=== PATIENT | male | born 1995 | race Caucasian/White ===

== ENCOUNTER 2018-11-05 19:40 | Emergency (ER) | payer OTHER ==
[~2018-11-05] VITALS: Ht 170.2 cm; Wt 59.2 kg
--- NOTE | 2018-11-05 20:08 | NUR ---
Yakelin JAMIL, at bedside to evaluate pt.
--- NOTE | 2018-11-05 21:07 | NUR ---
Yakelin JAMIL, at bedside to discuss ED findings and d/c information.
[2018-11-05 21:12] VITALS: BP 129/81
--- NOTE | 2018-11-05 21:13 | NUR ---
Patient/Caregiver given discharge instructions and they have confirmed that they understand the instructions. Patient ambulatory with steady gait.
== END 2018-11-05 21:18 | disposition home or self-care (01) ==
LOC: ED 20:30
DX: R07.89 Other chest pain (principal); Z87.891 Personal history of nicotine dependence
CPT/HCPCS: 71046; 93005; 99283

== ENCOUNTER 2019-11-03 15:45 | Emergency (ER) | payer OTHER ==
[~2019-11-03] VITALS: Ht 170.2 cm; Wt 54.7 kg
--- NOTE | 2019-11-03 16:24 | NUR ---
PT WITH ABD PAIN RUQ RLQ AND R FLANK PAIN. PT STATES IT HAS BEEN GOING ON FOR 10 DAYS. NO REBOUND NOTED. PT REPORTS SOME CHEST DISCOMFORT, GETS WORSE WHEN HE DRINKS ETOH. PT NOTED TO HAVE TREMORS, LAST DRINK REPORTED 5 DAYS AGO. PT DENIES N/V/D. PT TO CARD MONITOR, BP, CONT PULSE OX ER PROVIDER IN TO EVAL PT, AWAITING ORDERS
--- NOTE | 2019-11-03 16:41 | NUR ---
PT STATES UNABLE TO PROVIDE URINE SAMPLE, PT URINATED PRIOR TO COMING TO RM. WILL ATTEMPT AT LATER TIME
[2019-11-03 16:46] LABS: BASOPHILS # (AUTO) 0.03 x10^3/uL (0-0.1); BASOPHILS % (AUTO) 1 % (0-1); EOSINOPHILS # (AUTO) 0.46 x10^3/uL (0-0.4); EOSINOPHILS % (AUTO) 8 % (1-7); LYMPHOCYTES % (AUTO) 26 % (22-44); MD NO; MEAN CORPUSCULAR HEMOGLOBIN 32.7 pg (27.5-34.5); MEAN CORPUSCULAR HGB CONC 33.9 g/dL (33.2-36.2); MEAN CORPUSCULAR VOLUME 96.6 fL (81-97); MEAN PLATELET VOLUME 9.7 fL (7.4-10.4); MONOCYTES # (AUTO) 0.86 x10^3/uL (0.2-0.8); MONOCYTES % (AUTO) 15 % (2-9); NEUTROPHILS % (AUTO) 51 % (42-75); PLATELET COUNT 199 x10^3/uL (130-400); RED BLOOD COUNT 4.91 x10^6/uL (4.38-5.82); RED CELL DISTRIBUTION WIDTH 13.5 % (9.4-14.8)
[2019-11-03 16:53] LABS: ALANINE AMINOTRANSFERASE 48 U/L (12-78); ALBUMIN 4.3 g/dL (3.4-5.0); ANION GAP 9 mmol/L (5-15); CALCIUM 8.9 mg/dL (8.5-10.1); CHLORIDE 104 mmol/L (98-107)
[2019-11-03 16:58] LABS: ALKALINE PHOSPHATASE 73 U/L (45-117); BILIRUBIN,TOTAL 0.9 mg/dL (0.2-1.0); TOTAL PROTEIN 7.9 g/dL (6.4-8.2); TROPONIN I < 0.015 ng/mL (0.000-0.045)
--- NOTE | 2019-11-03 17:24 | NUR ---
US AT BEDSIDE AT THIS TIME.
[2019-11-03 18:13] LABS: MICROSCOPIC AUTO
[2019-11-03 18:28] VITALS: BP 101/61
--- NOTE | 2019-11-03 18:28 | NUR ---
PT RESTING ON GURNEY AT THIS TIME, VSS, NAD NOTED. PT PLACED FOR RECHECK
== END 2019-11-03 19:45 | disposition home or self-care (01) ==
LOC: ED 18:47
DX: K29.00 Acute gastritis without bleeding (principal); R07.89 Other chest pain; R94.31 Abnormal electrocardiogram [ECG] [EKG]
CPT/HCPCS: 36415; 71045; 76700; 80053; 81001; 83690; 84484; 85025; 87086; 93005; 99285